=== PATIENT | female | born 1975 | race Caucasian/White ===

== ENCOUNTER 2023-06-18 06:32 | Day surgery (SDC) | payer BC ==
[~2023-06-18 06:32] MED LIST: Sodium Chloride 0.9% 10 ML Syringe FLUSH PRN; ceFAZolin 2 GM Vial IVPUSH ONE
[2023-06-18] MEDS ORDERED: Dexamethasone 4 MG/ML 5 ML MDV IVPUSH ONE (06:33)
[2023-06-18] MEDS ORDERED: Rocuronium 100 MG/10 ML MDV IV ONE (06:33)
[2023-06-18] MEDS ORDERED: diphenhydrAMINE 50 MG/ML SDV IVPUSH ONE (06:33)
[2023-06-18] MEDS ORDERED: fentaNYL 100 MCG/2 ML SDV IV ONE (06:33)
[2023-06-18] MEDS ORDERED: Neostigmine Methylsulfate 10 MG/10 ML MDV IVPUSH ONE (06:33)
[2023-06-18] MEDS ORDERED: Midazolam 1 MG/ML 2 ML SDV IV ONE (06:33)
[2023-06-18] MEDS ORDERED: Glycopyrrolate 0.2 MG/ML 5 ML MDV IV ONE (06:33)
[2023-06-18] MEDS ORDERED: Ondansetron 4 MG/2 ML SDV IVPUSH ONE (06:33)
[2023-06-18] MEDS ORDERED: Propofol 200 MG/20 ML SDV IV ONE (06:33)
[2023-06-18] MEDS ORDERED: Gabapentin 300 MG Cap PO ONE (07:35)
[2023-06-18] MEDS ORDERED: Acetaminophen 500 MG Tab PO ONE (07:37)
[2023-06-18] MEDS: Lactated Ringers 1,000 ML IV SCH ×2 (07:45→11:00)
[2023-06-18] MEDS ORDERED: Bupivacaine 0.5%/EPINEPHrine 1:200,000 10 ML SDV INJECT ONE (08:21)
== END 2023-06-18 12:12 | disposition home or self-care (01) ==
LOC: FB.SDS 06:32
PROVIDERS: ATTEND Surgery
DX: K80.10 Calculus of gallbladder with chronic cholecystitis without obstruction (principal); F90.9 Attention-deficit hyperactivity disorder, unspecified type; J30.9 Allergic rhinitis, unspecified; J30.2 Other seasonal allergic rhinitis; F41.1 Generalized anxiety disorder; K21.9 Gastro-esophageal reflux disease without esophagitis; G43.109 Migraine with aura, not intractable, without status migrainosus; F11.10 Opioid abuse, uncomplicated; Z87.19 Personal history of other diseases of the digestive system; Z90.710 Acquired absence of both cervix and uterus; Z98.890 Other specified postprocedural states; Z98.51 Tubal ligation status; Z79.82 Long term (current) use of aspirin; Z79.899 Other long term (current) drug therapy
CPT/HCPCS: 00790; 88304; A9270-GY; J0690; J1100; J1200; J2250; J2405; J2704; J2710; J3010; J3490; J7120